=== PATIENT | female | born 1955 | race Caucasian/White ===

== ENCOUNTER 2018-07-13 10:03 | Day surgery (SDC) | payer MEDICARE ==
[2018-07-13] MEDS ORDERED: Depo-Medrol 40 MG/ML IM ONE (10:04)
[2018-07-13] MEDS ORDERED: Ketamine HCl 50 MG/ML IV ONE (10:04)
[2018-07-13] MEDS ORDERED: DIPRIVAN 200 MG/20 ML IV ONE (10:04)
[2018-07-13] MEDS ORDERED: Sodium Chloride 0.9(Preservative Free) 10 ML IJ ONE (10:04)
[2018-07-13] MEDS ORDERED: DILAUDID 2 MG INJECTION ONE (11:24)
[2018-07-13] MEDS ORDERED: Lactated Ringers 1,000 ML IV ONE (14:22)
--- NOTE | 2018-07-13 16:17 | XRAY ---
37 seconds fluoroscopy time in surgery for left L4-S1 VIKRAM.
--- NOTE | 2018-07-14 04:53 | XRAY ---
Indication: Left L4-S1 VIKRAM. Intraoperative fluoroscopy was provided for 37 seconds. 3 digital spot films submitted for interpretation demonstrate posterior spinal needles projected over the expected course of the left L4 and L5 nerve roots. A small amount of contrast has been injected for needle tip placement. Correlate with intraoperative findings/report. Posterior fusion hardware is seen within the lower lumbar spine.
== END 2018-07-13 11:33 | disposition home or self-care (01) ==
LOC: SDC-PAIN 10:03
PROVIDERS: ATTEND Psychiatry & Neurology Pain Medicine
DX: M54.16 Radiculopathy, lumbar region (principal); I10 Essential (primary) hypertension; J44.9 Chronic obstructive pulmonary disease, unspecified; K21.9 Gastro-esophageal reflux disease without esophagitis
CPT/HCPCS: 64483; 64484; 72020; 77003; J1030; J1170; J2704; Q9966

== ENCOUNTER 2019-11-22 11:38 | Day surgery (SDC) | payer MEDICARE, OTHER ==
[~2019-11-22 11:38] MED LIST: DIPRIVAN 200 MG/20 ML IV ONE; Ketamine HCl 50 MG/ML ONE
[2019-11-22] MEDS ORDERED: Depo-Medrol 40 MG/ML IM ONE (11:39)
[2019-11-22] MEDS ORDERED: Sodium Chloride 0.9(Preservative Free) 10 ML IJ ONE (11:39)
[2019-11-22] MEDS ORDERED: Lactated Ringers 1,000 ML IV ONE (13:52)
[2019-11-22] MEDS ORDERED: SUBLIMAZE 100 MCG/2 ML ONE (13:58)
--- NOTE | 2019-11-22 14:39 | XRAY ---
Indication: Left L3-L4 transforaminal VIKRAM. Intraoperative fluoroscopy was provided for 1 minute 53 seconds. 3 digital spot images submitted for interpretation demonstrates posterior needle tip projecting over the expected left L3 nerve root. Small amount of contrast injected for needle tip placement. Correlate with intraoperative findings/report. Incidental bilateral L4-S1 posterior spinal fusion hardware.
--- NOTE | 2019-11-22 14:53 | XRAY ---
1 minute and 53 seconds fluoroscopy time in surgery for left L3-L4 transforaminal VIKRAM.
== END 2019-11-22 14:10 | disposition home or self-care (01) ==
LOC: SDC-PAIN 11:38
PROVIDERS: ATTEND Psychiatry & Neurology Pain Medicine
DX: M54.16 Radiculopathy, lumbar region (principal); I10 Essential (primary) hypertension; Z86.73 Personal history of transient ischemic attack (TIA), and cerebral infarction without residual deficits; J44.9 Chronic obstructive pulmonary disease, unspecified; K21.9 Gastro-esophageal reflux disease without esophagitis; F41.8 Other specified anxiety disorders; Z79.899 Other long term (current) drug therapy
CPT/HCPCS: 64483; 72100; 77003; J1030; J2704; J3010; Q9966

== ENCOUNTER 2019-12-13 11:38 | Day surgery (SDC) | payer MEDICARE, OTHER ==
[2019-12-13] MEDS ORDERED: Depo-Medrol 40 MG/ML IM ONE (11:39)
[2019-12-13] MEDS ORDERED: BUPIVACAINE 0.5% VIAL IJ ONE (11:39)
[2019-12-13] MEDS ORDERED: Decadron 4 MG INJ IV ONE (11:39)
[2019-12-13] MEDS ORDERED: Xylocaine 1% Vial 30 ML PF IJ ONE (11:39)
[2019-12-13] MEDS ORDERED: Lactated Ringers 1,000 ML IV ONE (13:49)
--- NOTE | 2019-12-13 14:21 | XRAY ---
Indication: Left SI joint and piriformis injection. Intraoperative fluoroscopy was provided for 48 seconds. 3 digital spot images submitted for interpretation demonstrates posterior needle tip projecting over the inferior left SI joint. A second posterior needle tip projects over the expected left piriformis muscle with small amount of contrast injected for needle tip placement. Correlate with intraoperative findings/report.
--- NOTE | 2019-12-13 16:55 | XRAY ---
48 seconds of fluoroscopy was used in surgery for a left SI joint and piriformis muscle injection.
== END 2019-12-13 13:39 | disposition home or self-care (01) ==
LOC: SDC-PAIN 11:38
PROVIDERS: ATTEND Psychiatry & Neurology Pain Medicine
DX: M46.1 Sacroiliitis, not elsewhere classified (principal); M79.18 Myalgia, other site; I10 Essential (primary) hypertension; Z86.73 Personal history of transient ischemic attack (TIA), and cerebral infarction without residual deficits; J44.9 Chronic obstructive pulmonary disease, unspecified; J45.909 Unspecified asthma, uncomplicated; K21.9 Gastro-esophageal reflux disease without esophagitis; Z79.899 Other long term (current) drug therapy
CPT/HCPCS: 20552; 72202; 77002; G0260; 27096; J1030; J1100; J2001; J2704; Q9966

== ENCOUNTER 2020-01-03 12:33 | Day surgery (SDC) | payer MEDICARE, OTHER ==
[2020-01-03] MEDS ORDERED: BUPIVACAINE 0.5% VIAL IJ ONE (12:34)
[2020-01-03] MEDS ORDERED: Depo-Medrol 40 MG/ML IM ONE (12:34)
[2020-01-03] MEDS ORDERED: DIPRIVAN 200 MG/20 ML IV ONE (14:10)
[2020-01-03] MEDS ORDERED: Ketamine HCl 50 MG/ML ONE (14:10)
[2020-01-03] MEDS ORDERED: TORAdol 30 mg Injection ONE (14:25)
[2020-01-03] MEDS ORDERED: Lactated Ringers 1,000 ML IV ONE (15:16)
--- NOTE | 2020-01-03 15:19 | XRAY ---
Indication: Left greater trochanter injection. Intraoperative fluoroscopy was provided for 7 seconds. Single digital spot image submitted for interpretation demonstrates needle tip just lateral to the left greater trochanter. Small amount of contrast injected for needle tip placement. Correlate with intraoperative findings/report.
--- NOTE | 2020-01-03 15:22 | XRAY ---
7 seconds fluoroscopy time in surgery for injection of the greater trochanter of the lift hip.
== END 2020-01-03 14:33 | disposition home or self-care (01) ==
LOC: SDC-PAIN 12:33
PROVIDERS: ATTEND Psychiatry & Neurology Pain Medicine
DX: M16.12 Unilateral primary osteoarthritis, left hip (principal); I10 Essential (primary) hypertension; J44.9 Chronic obstructive pulmonary disease, unspecified; E03.9 Hypothyroidism, unspecified; Z86.73 Personal history of transient ischemic attack (TIA), and cerebral infarction without residual deficits
CPT/HCPCS: 20610; 73501; 77002; J1030; J1885; J2704; Q9966

== ENCOUNTER 2020-06-05 15:06 | Day surgery (SDC) | payer MEDICARE, OTHER ==
[2020-06-05] MEDS ORDERED: Xylocaine 1% Vial 30 ML PF IJ ONE (15:07)
[2020-06-05] MEDS ORDERED: BUPIVACAINE 0.5% VIAL IJ ONE (15:07)
[2020-06-05] MEDS ORDERED: Depo-Medrol 40 MG/ML IM ONE (15:07)
--- NOTE | 2020-06-05 16:55 | XRAY ---
Indication: Left SI joint injection. Intraoperative fluoroscopy provided for 10 seconds. Single digital spot image submitted for interpretation demonstrates posterior needle tip projecting over the left SI joint inferiorly. Correlate with intraoperative findings/report.
--- NOTE | 2020-06-05 16:55 | XRAY ---
Indication: Left greater trochanter injection. Intraoperative fluoroscopy provided for 16 seconds. Single digital spot image obtained prone submitted for interpretation demonstrates needle tip projecting just lateral to the left greater trochanter. Small amount of contrast injected for needle tip placement. Correlate with intraoperative findings/report.
--- NOTE | 2020-06-05 17:17 | XRAY ---
16 seconds fluoroscopy time in surgery for injection of the left greater trochanter.
--- NOTE | 2020-06-05 17:17 | XRAY ---
10 seconds fluoroscopy time in surgery for injection of the left SI joint.
== END 2020-06-05 16:52 | disposition home or self-care (01) ==
LOC: SDC-PAIN 15:06
PROVIDERS: ATTEND Psychiatry & Neurology Pain Medicine
DX: M46.1 Sacroiliitis, not elsewhere classified (principal); M16.12 Unilateral primary osteoarthritis, left hip; I10 Essential (primary) hypertension; J45.909 Unspecified asthma, uncomplicated; Z86.73 Personal history of transient ischemic attack (TIA), and cerebral infarction without residual deficits; J44.9 Chronic obstructive pulmonary disease, unspecified; Z85.41 Personal history of malignant neoplasm of cervix uteri; K21.9 Gastro-esophageal reflux disease without esophagitis; Z79.899 Other long term (current) drug therapy
CPT/HCPCS: 20610; 27096; 72202; 73501; 77002; G0260; J1030; J2001; Q9966

== ENCOUNTER 2020-07-03 13:11 | Day surgery (SDC) | payer MEDICARE, OTHER ==
[2020-07-03] MEDS ORDERED: Depo-Medrol 40 MG/ML IM ONE (13:12)
[2020-07-03] MEDS ORDERED: Sodium Chloride 0.9(Preservative Free) 10 ML IJ ONE (13:12)
[2020-07-03] MEDS ORDERED: DIPRIVAN 200 MG/20 ML IV ONE (15:00)
[2020-07-03] MEDS ORDERED: MORPHINE SULFATE 10 MG/ML ONE (15:25)
[2020-07-03] MEDS ORDERED: Lactated Ringers 1,000 ML IV ONE (16:25)
--- NOTE | 2020-07-03 17:40 | XRAY ---
39 seconds of fluoroscopy was used in surgery for a left L3-L4,L4-L5 transforaminal VIKRAM.
== END 2020-07-03 15:41 | disposition home or self-care (01) ==
LOC: SDC-PAIN 13:11
PROVIDERS: ATTEND Psychiatry & Neurology Pain Medicine
DX: M54.16 Radiculopathy, lumbar region (principal); I10 Essential (primary) hypertension; J44.9 Chronic obstructive pulmonary disease, unspecified; K21.9 Gastro-esophageal reflux disease without esophagitis; F41.8 Other specified anxiety disorders; Z85.41 Personal history of malignant neoplasm of cervix uteri; J45.909 Unspecified asthma, uncomplicated; Z86.73 Personal history of transient ischemic attack (TIA), and cerebral infarction without residual deficits; Z79.899 Other long term (current) drug therapy
CPT/HCPCS: 64483; 64484; 72100; 77003; J1030; J2270; J2704; Q9966

== ENCOUNTER 2020-07-24 09:35 | Day surgery (SDC) | payer MEDICARE, OTHER ==
[2020-07-24] MEDS ORDERED: BUPIVACAINE 0.5% VIAL IJ ONE (09:36)
[2020-07-24] MEDS ORDERED: Depo-Medrol 40 MG/ML IM ONE (09:36)
[2020-07-24] MEDS ORDERED: DIPRIVAN 200 MG/20 ML IV ONE ×2 (10:39→10:50)
--- NOTE | 2020-07-24 12:18 | XRAY ---
15 seconds fluoroscopy time in surgery for injection of the left SI joint.
--- NOTE | 2020-07-24 12:22 | XRAY ---
Indication: Left SI joint injection. Intraoperative fluoroscopy provided for 15 seconds. 2 digital spot images submitted for interpretation demonstrates posterior needle tip projecting over the inferior left SI joint. Correlate with intraoperative findings/report. Incidental incompletely visualized lumbosacral fusion hardware.
[2020-07-24] MEDS ORDERED: Lactated Ringers 1,000 ML IV ONE (15:54)
== END 2020-07-24 11:34 | disposition home or self-care (01) ==
LOC: SDC-PAIN 09:35
PROVIDERS: ATTEND Psychiatry & Neurology Pain Medicine
DX: M46.1 Sacroiliitis, not elsewhere classified (principal); I10 Essential (primary) hypertension; J45.909 Unspecified asthma, uncomplicated; G45.9 Transient cerebral ischemic attack, unspecified; M19.90 Unspecified osteoarthritis, unspecified site; K21.9 Gastro-esophageal reflux disease without esophagitis; C53.9 Malignant neoplasm of cervix uteri, unspecified; F41.9 Anxiety disorder, unspecified; F32.9 Major depressive disorder, single episode, unspecified; J44.9 Chronic obstructive pulmonary disease, unspecified; Z79.899 Other long term (current) drug therapy
CPT/HCPCS: 27096; 72020; 77002; G0260; J1030; J2704

== ENCOUNTER 2020-08-14 10:11 | Day surgery (SDC) | payer MEDICARE, OTHER ==
[2020-08-14] MEDS ORDERED: Decadron 4 MG INJ IV ONE (10:12)
[2020-08-14] MEDS ORDERED: Xylocaine 1% Vial 30 ML PF IJ ONE (10:12)
[2020-08-14] MEDS ORDERED: DIPRIVAN 200 MG/20 ML IV ONE (12:05)
[2020-08-14] MEDS ORDERED: Lactated Ringers 1,000 ML IV ONE (16:28)
--- NOTE | 2020-08-15 11:34 | XRAY ---
29 seconds fluoroscopy time in surgery for injection of the left piriformis muscle.
== END 2020-08-14 12:28 | disposition home or self-care (01) ==
LOC: SDC-PAIN 10:11
PROVIDERS: ATTEND Psychiatry & Neurology Pain Medicine
DX: M79.18 Myalgia, other site (principal); I10 Essential (primary) hypertension; J45.909 Unspecified asthma, uncomplicated; K21.9 Gastro-esophageal reflux disease without esophagitis; F41.9 Anxiety disorder, unspecified; F32.9 Major depressive disorder, single episode, unspecified; J44.9 Chronic obstructive pulmonary disease, unspecified; Z79.899 Other long term (current) drug therapy
CPT/HCPCS: 20552; 72020; 77002; J1100; J2001; J2704; Q9966

== ENCOUNTER 2020-12-11 08:45 | Day surgery (SDC) | payer MEDICARE, OTHER ==
[2020-12-11] MEDS ORDERED: Depo-Medrol 40 MG/ML IM ONE (08:46)
[2020-12-11] MEDS ORDERED: BUPIVACAINE 0.5% VIAL IJ ONE (08:46)
[2020-12-11] MEDS ORDERED: Sodium Chloride 0.9(Preservative Free) 10 ML IJ ONE (08:46)
[2020-12-11] MEDS ORDERED: DIPRIVAN 200 MG/20 ML IV ONE (10:12)
[2020-12-11] MEDS ORDERED: TORAdol 30 mg Injection ONE (10:56)
--- NOTE | 2020-12-11 12:01 | XRAY ---
Indication: Left L3-L5 transforaminal VIKRAM. Intraoperative fluoroscopy provided for 54 seconds. 3 digital spot image submitted for interpretation demonstrates posterior needle tips projecting over the expected left L3 and L4 nerve roots. Small amount of contrast injected for needle tip placement. Correlate with intraoperative findings/report.
--- NOTE | 2020-12-11 12:10 | XRAY ---
15 seconds of fluoroscopy was used in surgery for a left sacroiliac joint injection.
--- NOTE | 2020-12-11 12:12 | XRAY ---
Indication: Left SI joint injection. Intraoperative fluoroscopy provided for 15 seconds. 2 digital spot image submitted for interpretation demonstrates posterior needle tip projecting over the inferior left SI joint. Correlate with intraoperative findings/report. Incidental incompletely visualized bilateral lumbosacral junction posterior spinal fusion hardware.
--- NOTE | 2020-12-11 12:20 | XRAY ---
54 seconds of fluoroscopy was used in surgery for a left L3-L5 transforaminal VIKRAM.
[2020-12-11] MEDS ORDERED: Lactated Ringers 1,000 ML IV ONE (16:26)
== END 2020-12-11 11:06 | disposition home or self-care (01) ==
LOC: SDC-PAIN 08:45
PROVIDERS: ATTEND Psychiatry & Neurology Pain Medicine
DX: M54.16 Radiculopathy, lumbar region (principal); M46.1 Sacroiliitis, not elsewhere classified; Z79.899 Other long term (current) drug therapy
CPT/HCPCS: 27096; 64483; 64484; 72020; 72100; 77002; 77003; G0260; J1030; J1885; J2704; Q9966

== ENCOUNTER 2021-02-06 07:22 | Day surgery (SDC) | payer MEDICARE, OTHER ==
[2021-02-06] MEDS ORDERED: Depo-Medrol 40 MG/ML IM ONE (07:23)
[2021-02-06] MEDS ORDERED: Decadron 4 MG INJ IV ONE (07:23)
[2021-02-06] MEDS ORDERED: Xylocaine 1% Vial 30 ML PF IJ ONE (07:23)
[2021-02-06] MEDS ORDERED: Sodium Chloride 0.9% 10 ML FLUSH Syringe IJ ONE (07:23)
[2021-02-06] MEDS ORDERED: Lactated Ringers 1,000 ML IV ONE (08:27)
[2021-02-06] MEDS ORDERED: DIPRIVAN 200 MG/20 ML IV ONE (09:02)
[2021-02-06] MEDS ORDERED: XYLOCAINE 2%/Epi 1:200000 20ML VIAL MPF ONE (09:02)
--- NOTE | 2021-02-06 09:35 | XRAY ---
Indication: Left L3-L5 transforaminal VIKRAM. Intraoperative fluoroscopy provided for 33 seconds. 3 digital spot image submitted for interpretation demonstrates posterior needle tips projecting over the expected left L3 and L4 nerve roots. Small amount of contrast injected for needle tip placement. Correlate with intraoperative findings/report. Incidental incompletely visualized bilateral inferior lumbar posterior spinal fusion hardware.
--- NOTE | 2021-02-06 09:37 | XRAY ---
Indication: Left piriformis injection. Intraoperative fluoroscopy provided for 24 seconds. Single digital spot image obtained prone submitted for interpretation demonstrates posterior needle tip projecting over the expected left piriformis muscle. Small amount of contrast injected for needle tip placement. Correlate with intraoperative findings/report.
--- NOTE | 2021-02-06 10:40 | XRAY ---
24 seconds fluoroscopy time in surgery for injection of the left piriformis muscle.
--- NOTE | 2021-02-06 10:49 | XRAY ---
33 seconds fluoroscopy time in surgery for left L3-L5 transforaminal VIKRAM.
== END 2021-02-06 09:30 | disposition home or self-care (01) ==
LOC: SDC-PAIN 07:22
PROVIDERS: ATTEND Psychiatry & Neurology Pain Medicine
DX: M54.16 Radiculopathy, lumbar region (principal); M79.18 Myalgia, other site; I10 Essential (primary) hypertension; Z79.899 Other long term (current) drug therapy
CPT/HCPCS: 20552; 64483; 64484; 72020; 72100; 77002; 77003; J1030; J1100; J2001; J2704; Q9966

== ENCOUNTER 2021-03-26 13:25 | Day surgery (SDC) | payer MEDICARE, OTHER ==
[2021-03-26] MEDS ORDERED: BUPIVACAINE 0.5% VIAL IJ ONE (13:26)
[2021-03-26] MEDS ORDERED: Depo-Medrol 40 MG/ML IJ ONE (13:26)
[2021-03-26] MEDS ORDERED: Lactated Ringers 1,000 ML IV ONE (14:54)
[2021-03-26] MEDS ORDERED: DIPRIVAN 200 MG/20 ML IV ONE (15:31)
--- NOTE | 2021-03-26 16:21 | XRAY ---
36 seconds of fluoroscopy was used in surgery for a left intra-articular and greater trochanteric bursa injection.
--- NOTE | 2021-03-26 16:22 | XRAY ---
Indication: Left hip and greater trochanter bursa injections. Intraoperative fluoroscopy provided for 36 seconds. 2 digital spot image submitted for interpretation demonstrates needle tip projecting lateral to the left femur neck and left greater trochanter. Small amount of contrast injected for both needle tip placement. Correlate with intraoperative findings/report.
== END 2021-03-26 15:56 | disposition home or self-care (01) ==
LOC: SDC-PAIN 13:25
PROVIDERS: ATTEND Psychiatry & Neurology Pain Medicine
DX: M16.12 Unilateral primary osteoarthritis, left hip (principal); M70.62 Trochanteric bursitis, left hip; Z79.899 Other long term (current) drug therapy
CPT/HCPCS: 20610; 73502; 76942; 77002; J1030; J2704; Q9966

== ENCOUNTER 2021-06-04 07:37 | Day surgery (SDC) | payer MEDICARE, OTHER ==
[2021-06-04] MEDS ORDERED: Depo-Medrol 40 MG/ML IM ONE (07:38)
[2021-06-04] MEDS ORDERED: Sodium Chloride 0.9(Preservative Free) 10 ML IJ ONE (07:38)
[2021-06-04] MEDS ORDERED: Decadron 4 MG INJ IV ONE (07:38)
[2021-06-04] MEDS ORDERED: Xylocaine 1% Vial 30 ML PF IJ ONE (07:38)
[2021-06-04] MEDS ORDERED: Lactated Ringers 1,000 ML IV ONE (08:46)
[2021-06-04] MEDS ORDERED: DIPRIVAN 200 MG/20 ML IV ONE (09:11)
[2021-06-04] MEDS ORDERED: TORAdol 30 mg Injection ONE (09:30)
--- NOTE | 2021-06-04 10:22 | XRAY ---
Indication: Left piriformis muscle injection. Intraoperative fluoroscopy provided for 35 seconds. 2 digital spot image submitted for interpretation demonstrates posterior needle tip projecting over the expected left piriformis muscle. Small amount of contrast injected for needle tip placement. Correlate with intraoperative findings/report.
--- NOTE | 2021-06-04 10:22 | XRAY ---
Indication: Left L3-L5 transforaminal VIKRAM. Intraoperative fluoroscopy provided for 32 seconds. 3 digital spot image submitted for interpretation demonstrates posterior needle tips projecting over the expected left L3 and L4 nerve roots. Small amount of contrast injected for needle tip placement. Correlate with intraoperative findings/report. Incidental partially visualized bilateral lumbosacral junction fusion hardware.
--- NOTE | 2021-06-04 11:19 | XRAY ---
34 seconds fluoroscopy time in surgery for left L3-L5 transforaminal VIKRAM.
--- NOTE | 2021-06-04 11:19 | XRAY ---
35 seconds fluoroscopy time in surgery for injection of the left piriformis muscle.
== END 2021-06-04 09:45 | disposition home or self-care (01) ==
LOC: SDC-PAIN 07:37
PROVIDERS: ATTEND Psychiatry & Neurology Pain Medicine
DX: M54.16 Radiculopathy, lumbar region (principal); M79.18 Myalgia, other site; Z79.899 Other long term (current) drug therapy
CPT/HCPCS: 20552; 64483; 64484; 72020; 72100; 77002; 77003; J1030; J1100; J1885; J2001; J2704; Q9966

== ENCOUNTER 2021-09-03 11:26 | Day surgery (SDC) | payer MEDICARE, OTHER ==
[2021-09-03] MEDS ORDERED: XYLOCAINE-MPF 1% 5ML SDV IJ ONE (11:27)
[2021-09-03] MEDS ORDERED: Decadron 4 MG INJ IV ONE (11:27)
[2021-09-03] MEDS ORDERED: Sodium Chloride 0.9(Preservative Free) 10 ML IJ ONE (11:27)
[2021-09-03] MEDS ORDERED: Depo-Medrol 40 MG/ML IM ONE (11:27)
[2021-09-03] MEDS ORDERED: DIPRIVAN 200 MG/20 ML IV ONE (13:34)
[2021-09-03] MEDS ORDERED: TORAdol 30 mg Injection ONE (13:54)
[2021-09-03] MEDS ORDERED: Lactated Ringers 1,000 ML IV ONE (14:29)
--- NOTE | 2021-09-03 16:34 | XRAY ---
1 minute and 11 seconds fluoroscopy time in surgery for left L3-L5 transforaminal VIKRAM and injection of the left piriformis muscle.
--- NOTE | 2021-09-04 08:06 | XRAY ---
Indication: Left L3-L5 transforaminal VIKRAM and left piriformis injection. Intraoperative fluoroscopy provided for 1 minute 11 seconds. 5 digital spot image submitted for interpretation demonstrates posterior needle tips projecting over the expected left L4 and L5 nerve roots. Second needle tip projects over the left piriformis muscle. Small amount of contrast injected for all needle tip placement. Correlate with intraoperative findings/report. Incidental bilateral lumbosacral junction fusion hardware.
== END 2021-09-03 14:00 | disposition home or self-care (01) ==
LOC: SDC-PAIN 11:26
PROVIDERS: ATTEND Psychiatry & Neurology Pain Medicine
DX: M54.16 Radiculopathy, lumbar region (principal); M79.18 Myalgia, other site; Z79.899 Other long term (current) drug therapy
CPT/HCPCS: 20552; 64483; 64484; 72100; 77002; 77003; J1030; J1100; J1885; J2704; Q9966

== ENCOUNTER 2021-10-08 14:18 | Day surgery (SDC) | payer MEDICARE, OTHER ==
[2021-10-08] MEDS ORDERED: Sodium Chloride 0.9(Preservative Free) 10 ML IJ ONE (14:19)
[2021-10-08] MEDS ORDERED: Depo-Medrol 40 MG/ML IM ONE (14:19)
[2021-10-08] MEDS ORDERED: DIPRIVAN 200 MG/20 ML IV ONE (15:46)
[2021-10-08] MEDS ORDERED: Lactated Ringers 1,000 ML IV ONE (15:49)
[2021-10-08] MEDS ORDERED: TORAdol 30 mg Injection ONE (16:07)
--- NOTE | 2021-10-08 16:49 | XRAY ---
Indication: Left L1-L3 transforaminal VIKRAM. Intraoperative fluoroscopy provided for 57 seconds. 4 digital spot images submitted for interpretation demonstrates posterior needle tip projecting over the left L1 and L2 nerve roots. Small amount of contrast injected for needle tip placement. Correlate with intraoperative findings/report. Incidental incompletely visualized bilateral lumbosacral junction fusion hardware.
--- NOTE | 2021-10-09 09:19 | XRAY ---
57 seconds fluoroscopy time in surgery for left L1-L3 transforaminal VIKRAM.
== END 2021-10-08 16:15 | disposition home or self-care (01) ==
LOC: SDC-PAIN 14:18
PROVIDERS: ATTEND Psychiatry & Neurology Pain Medicine
DX: M54.16 Radiculopathy, lumbar region (principal); Z79.899 Other long term (current) drug therapy
CPT/HCPCS: 64483; 64484; 72100; 77003; J1030; J1885; J2704; Q9966

== ENCOUNTER 2022-04-15 12:09 | Day surgery (SDC) | payer MEDICARE, OTHER ==
[2022-04-15] MEDS ORDERED: Depo-Medrol 40 MG/ML IM ONE (12:10)
[2022-04-15] MEDS ORDERED: BUPIVACAINE 0.5% VIAL IJ ONE (12:10)
[2022-04-15] MEDS ORDERED: Sodium Chloride 0.9(Preservative Free) 10 ML IJ ONE (12:10)
[2022-04-15] MEDS ORDERED: Lactated Ringers 1,000 ML IV ONE (14:07)
[2022-04-15] MEDS ORDERED: DIPRIVAN 200 MG/20 ML IV ONE ×2 (14:09→14:38)
[2022-04-15] MEDS ORDERED: Hydromorphone 1 mg/ml Injection ONE (14:46)
--- NOTE | 2022-04-15 16:16 | XRAY ---
Indication: Left SI joint injection. Intraoperative fluoroscopy provided for 16 seconds. 2 digital spot image submitted for interpretation demonstrates posterior needle tip projecting over the left SI joint. Correlate with intraoperative findings/report. Incidental incompletely visualized lower lumbar fusion hardware.
--- NOTE | 2022-04-15 16:23 | XRAY ---
Indication: Left L3-L5 transforaminal VIKRAM Intraoperative fluoroscopy provided for 1 minute 28 seconds. 14 digital spot image submitted for interpretation demonstrates posterior needle tips projecting over the expected left L3 and L4 nerve roots. Small amount of contrast injected for needle tip placement. Correlate with intraoperative findings/report. Incidental incompletely visualized bilateral L5-S1 posterior fusion hardware.
--- NOTE | 2022-04-15 16:35 | XRAY ---
16 seconds of fluoroscopy was used in surgery for a left sacroiliac joint injection.
--- NOTE | 2022-04-15 16:36 | XRAY ---
One minute and 28 seconds of fluoroscopy was used in surgery for a left L3-L5 transforaminal VIKRAM.
== END 2022-04-15 15:00 | disposition home or self-care (01) ==
LOC: SDC-PAIN 12:09
PROVIDERS: ATTEND Psychiatry & Neurology Pain Medicine
DX: M46.1 Sacroiliitis, not elsewhere classified (principal); M54.16 Radiculopathy, lumbar region; Z79.899 Other long term (current) drug therapy
CPT/HCPCS: 01992; 27096; 64483; 64484; 72100; 72170; 77002; 77003; G0260; J1030; J1170; J2704; Q9966

== ENCOUNTER 2022-05-13 12:43 | Day surgery (SDC) | payer MEDICARE, OTHER ==
[2022-05-13] MEDS ORDERED: BUPIVACAINE 0.5% VIAL IJ ONE (12:44)
[2022-05-13] MEDS ORDERED: Depo-Medrol 40 MG/ML IM ONE (12:44)
[2022-05-13] MEDS ORDERED: DIPRIVAN 200 MG/20 ML IV ONE (14:18)
--- NOTE | 2022-05-13 14:46 | XRAY ---
23 seconds of fluoroscopy was used in surgery for a left intra-articular hip and greater trochanteric bursa injection.
--- NOTE | 2022-05-13 14:50 | XRAY ---
Indication: Left hip and left greater trochanter bursa injection. Intraoperative fluoroscopy provided for 23 seconds. 2 digital spot image submitted for interpretation demonstrates needle tip projecting lateral to the left femur neck. Second needle tip lateral to the greater trochanter. Small amount of contrast injected for both needle tip placement. Correlate with intraoperative findings/report.
[2022-05-13] MEDS ORDERED: Lactated Ringers 1,000 ML IV ONE (15:18)
== END 2022-05-13 14:55 | disposition home or self-care (01) ==
LOC: SDC-PAIN 12:43
PROVIDERS: ATTEND Psychiatry & Neurology Pain Medicine
DX: M16.12 Unilateral primary osteoarthritis, left hip (principal); Z79.899 Other long term (current) drug therapy
CPT/HCPCS: 20610; 73502; 77002; J1030; J2704; Q9966

== ENCOUNTER 2022-06-17 12:36 | Day surgery (SDC) | payer MEDICARE, OTHER ==
[2022-06-17] MEDS ORDERED: Depo-Medrol 40 MG/ML IM ONE (12:37)
[2022-06-17] MEDS ORDERED: LIDOCAINE HCL 1% 50 MG/5 ML VL PF IJ ONE (12:37)
[2022-06-17] MEDS ORDERED: Decadron 4 MG INJ IV ONE (12:37)
[2022-06-17] MEDS ORDERED: BUPIVACAINE 0.5% VIAL IJ ONE (12:37)
[2022-06-17] MEDS ORDERED: DIPRIVAN 200 MG/20 ML IV ONE (14:28)
[2022-06-17] MEDS ORDERED: Lactated Ringers 1,000 ML IV ONE (15:38)
--- NOTE | 2022-06-17 16:33 | XRAY ---
Indication: Left SI joint and left piriformis injection. Intraoperative fluoroscopy provided for 19 seconds. 3 digital spot image submitted for interpretation demonstrates posterior needle tip projecting over the left SI joint. Second needle tip projects over the left piriformis muscle with small amount of contrast injected for needle tip placement. Correlate with intraoperative findings/report.
--- NOTE | 2022-06-17 16:38 | XRAY ---
19 seconds of fluoroscopy was used in surgery for a left sacroiliac joint and left piriformis injection.
== END 2022-06-17 14:55 | disposition home or self-care (01) ==
LOC: SDC-PAIN 12:36
PROVIDERS: ATTEND Psychiatry & Neurology Pain Medicine
DX: M46.1 Sacroiliitis, not elsewhere classified (principal); M79.18 Myalgia, other site; Z79.899 Other long term (current) drug therapy
CPT/HCPCS: 20552; 72170; 77002; J1030; J1100; J2001; J2704; Q9966

== ENCOUNTER 2022-09-16 12:47 | Day surgery (SDC) | payer MEDICARE, OTHER ==
[2022-09-16] MEDS ORDERED: Depo-Medrol 40 MG/ML IM ONE (12:48)
[2022-09-16] MEDS ORDERED: LIDOCAINE HCL 1% 50 MG/5 ML VL PF IJ ONE (12:48)
[2022-09-16] MEDS ORDERED: Sodium Chloride 0.9(Preservative Free) 10 ML IJ ONE (12:48)
[2022-09-16] MEDS ORDERED: Versed 2 MG/2 ML Injection ONE (14:42)
[2022-09-16] MEDS ORDERED: SUBLIMAZE 100 MCG/2 ML ONE (14:44)
[2022-09-16] MEDS ORDERED: Ketamine HCl 50 MG/ML ONE (14:55)
--- NOTE | 2022-09-16 15:21 | XRAY ---
46 seconds of fluoroscopy was used in surgery for a left L2-L4 transforaminal VIKRAM.
--- NOTE | 2022-09-16 15:21 | XRAY ---
Indication: Left L L2-L4 transforaminal VIKRAM. Intraoperative fluoroscopy provided for 46 seconds. 6 digital spot image submitted for interpretation demonstrates posterior needle tips projecting over the expected left left L2 and L3 nerve roots. Small amount of contrast injected for needle tip placement. Correlate with intraoperative findings/report. Incidental incompletely visualized bilateral lower lumbar posterior fusion hardware.
[2022-09-16] MEDS ORDERED: Lactated Ringers 1,000 ML IV ONE (15:27)
== END 2022-09-16 15:17 | disposition home or self-care (01) ==
LOC: SDC-PAIN 12:47
PROVIDERS: ATTEND Psychiatry & Neurology Pain Medicine
DX: M54.16 Radiculopathy, lumbar region (principal); Z79.899 Other long term (current) drug therapy
CPT/HCPCS: 64483; 72100; 77003; J1030; J2001; J2250; J3010; Q9966

== ENCOUNTER 2022-10-15 07:54 | Day surgery (SDC) | payer MEDICARE, OTHER ==
[2022-10-15] MEDS ORDERED: BUPIVACAINE 0.5% VIAL IJ ONE (07:55)
[2022-10-15] MEDS ORDERED: Depo-Medrol 40 MG/ML IM ONE (07:55)
[2022-10-15] MEDS ORDERED: DIPRIVAN 200 MG/20 ML IV ONE (09:11)
[2022-10-15] MEDS ORDERED: Hydromorphone 1 mg/ml Injection ONE ×2 (09:21→09:24)
[2022-10-15] MEDS ORDERED: Lactated Ringers 1,000 ML IV ONE (10:08)
--- NOTE | 2022-10-15 10:36 | XRAY ---
Indication: Left SI joint injection. Intraoperative fluoroscopy provided for 13 seconds. 2 digital spot image submitted for interpretation demonstrates posterior needle tip projecting over left SI joint. Correlate with intraoperative findings/report. Incidental incompletely visualized lumbosacral fusion hardware.
--- NOTE | 2022-10-15 10:53 | XRAY ---
13 seconds of fluoroscopy was used in surgery for a left sacroiliac joint injection.
== END 2022-10-15 09:45 | disposition home or self-care (01) ==
LOC: SDC-PAIN 07:54
PROVIDERS: ATTEND Psychiatry & Neurology Pain Medicine
DX: M46.1 Sacroiliitis, not elsewhere classified (principal)
CPT/HCPCS: 27096; 72202; 77002; G0260; J1030; J1170; J2704

== ENCOUNTER 2023-06-30 12:05 | Day surgery (SDC) | payer MEDICARE, OTHER ==
[2023-06-30] MEDS ORDERED: Decadron 4 MG INJ IV ONE (12:06)
[2023-06-30] MEDS ORDERED: Sodium Chloride 0.9(Preservative Free) 10 ML IJ ONE (12:06)
[2023-06-30] MEDS ORDERED: Lactated Ringers 1,000 ML IV ONE (13:13)
[2023-06-30] MEDS ORDERED: DIPRIVAN 200 MG/20 ML IV ONE (13:43)
[2023-06-30] MEDS ORDERED: Hydromorphone 1 mg/ml Injection ONE (13:59)
--- NOTE | 2023-06-30 14:56 | XRAY ---
Indication: Left L3-L5 transforaminal VIKRAM. Intraoperative fluoroscopy provided for 28 seconds. 4 digital spot images submitted for interpretation demonstrates posterior needle tips projecting over the expected left L3 and L4 nerve roots. Small amount of contrast injected for needle tip placement. Correlate with intraoperative findings/report. Incidental lower lumbar fusion hardware.
--- NOTE | 2023-06-30 15:24 | XRAY ---
28 seconds of fluoroscopy was used in surgery for a left L3-L5 transforaminal VIKRAM.
== END 2023-06-30 14:20 | disposition home or self-care (01) ==
LOC: SDC-PAIN 12:05
PROVIDERS: ATTEND Psychiatry & Neurology Pain Medicine
DX: M54.16 Radiculopathy, lumbar region (principal)
CPT/HCPCS: 64483; 64484; 72100; 77003; J1100; J1170; J2704; Q9966